=== PATIENT | male | born 1955 | race Caucasian/White ===

== ENCOUNTER 2020-10-25 01:02 | Observation (INO) | payer OTHER ==
[~2020-10-25] VITALS: Ht 175.3 cm; Wt 102.9 kg
[2020-10-25 01:26] LABS: BASOPHILS ABSOLUTE AUTO 0.04 K/mm3 (0.00-0.23); BASOPHILS PERCENT AUTO 1 % (0-2); EOSINOPHILS ABSOLUTE AUTO 0.13 K/mm3 (0.00-0.68); EOSINOPHILS PERCENT AUTO 2 % (0-6); Hematocrit 34.7 % (37.0-53.0); Hemoglobin 10.9 g/dL (13.5-17.5); IMMATURE GRAN ABSOLUTE AUTO 0.01 K/mm3 (0.00-0.10); IMMATURE GRAN PERCENT AUTO 0 % (0-1); LYMPHOCYTES ABSOLUTE AUTO 1.42 K/mm3 (0.84-5.20); LYMPHOCYTES PERCENT AUTO 19 % (21-46); MONOCYTES ABSOLUTE AUTO 0.58 K/mm3 (0.16-1.47); MONOCYTES PERCENT AUTO 8 % (4-13); Mean Corpuscular HGB 24.8 pg (26.0-34.0); Mean Corpuscular HGB Conc 31.4 g/dL (31.5-36.5); Mean Corpuscular Volume 79 fL (80-100); Mean Platelet Volume 10.6 fL (9.1-12.4); NEUTROPHILS ABSOLUTE AUTO 5.49 K/mm3 (1.96-9.15); NEUTROPHILS PERCENT AUTO 72 % (41-73); Platelet Count 193 K/mm3 (150-400); RDW Coefficient Variation 16.1 % (11.7-14.2); RDW Standard Deviation 46.4 fL (35.1-46.3); White Blood Cell Count 7.67 K/mm3 (4.00-11.30)
[2020-10-25] MEDS ORDERED: ALPR.5 PO (01:39)
[2020-10-25] MEDS ORDERED: PARO20 PO (01:39)
[2020-10-25 01:44] LABS: Acetaminophen, Random <2.0 ug/mL (10.0-30.0); Alanine Aminotransfer (ALT/SGP 29 U/L (12-78); Albumin, Blood 3.7 g/dL (3.4-5.0); Albumin/Globulin Ratio 1.2 (0.8-1.8); Alk Phos 89 U/L (50-136); Anion Gap 4 mmol/L (6-16); Aspartate Aminotrans (AST/SGOT 17 U/L (12-37); Bilirubin, Total 0.4 mg/dL (0.1-1.0); Blood Urea Nitrogen 20 mg/dL (8-24); Bun/Creatinine Ratio 20.5 (12.0-20.0); CO2, Blood 29 mmol/L (21-32); Calcium, Blood 8.3 mg/dL (8.5-10.1); Chloride, Blood 110 mmol/L (98-108); Creatinine, Blood 0.98 mg/dL (0.60-1.20); Ethanol (Alcohol), Blood, Med <3 mg/dL; Globulin, Blood 3.2 g/dL (2.2-4.0); Glomerular Filtration Rate >60 (60-); Glucose, Blood 128 mg/dL (70-99); Potassium, Blood 3.4 mmol/L (3.5-5.5); Salicylate <1.7 mg/dL (2.8-20.0); Sodium, Blood 143 mmol/L (136-145); Total Protein, Blood 6.9 g/dL (6.4-8.2)
[2020-10-25 01:55] LABS: Magnesium, Blood 2.4 mg/dL (1.6-2.4)
[2020-10-25 02:01] LABS: Source, Urine Clean Catch
[2020-10-25 02:33] LABS: Appearance, Urine Clear (Clear); Bilirubin, Urine Neg (Neg); Blood, Urine 2+ (Neg); Color, Urine Yellow (P-Yellow); Glucose Qualitative, Urine Neg (Neg); Ketones, Urine Neg (Neg); Leukocyte Esterase, Urine 3+ (Neg); Nitrite, Urine Pos (Neg); Protein, Urine 1+ (Neg); Specific Gravity, Urine 1.015 (1.003-1.022); Urobilinogen, Urine NORM (Normal); pH, Urine 6.5 (5.0-8.0)
[2020-10-25 02:39] LABS: Bacteria Many /hpf; Squamous Epithelial Cells Not Seen /hpf (Few); White Blood Cells, Urine 50-100 /hpf (0-5)
[2020-10-25 02:59] LABS: U Amphetamine Screen Not Detected; U Barbituate Screen Not Detected; U Benzodiazapine Screen DETECTED; U Buprenorphine Screen Not Detected; U Cannabinoids Screen Not Detected; U Cocaine Screen Not Detected; U Methadone Screen Not Detected; U Methamphetamine Screen Not Detected; U Opiates Screen Not Detected; U Oxycodone Screen Not Detected; U Phencyclidine Screen Not Detected; U Propoxyphene Screen Not Detected
--- NOTE | 2020-10-25 03:47 | NUR ---
POISON CONTROL: JENIFFER CERRATO, REVIEWED PT STATUS, AND ORDERS AND TX PLAN. PT WILL NEED ONLY 12* OBSERVATION TIME WITH PEAK BEING 0500. IF PT BECOMES SYMPTOMATIC WITH TACHYCARDIA, TREMORS, OR AGGITATION RECOMMEND TX W BENZO'S. NO FURTHER REPEAT LABS RECOMMENDED. CALL FOR FURTHER QUESTIONS OR CONCERNS.
--- NOTE | 2020-10-25 04:12 | NUR ---
ASSUMPTION OF CARE RECEIVED REPORT FROM JOIE BROWN, PATIENT ARRIVED TO ICU AT 0210 VIA GURNEY. 3 PERSON ASSIST TO BED. PATIENT AWAKE, ORIENTED. CONVERSING, OFTEN SLURRING WORDS AND FORGETFUL BUT ANSWERS QUESTIONS APPROPRIATELY. PATIENT DENIED SI AT THIS TIME, STATED HE FELT LIKE HE WAS READY JUST TO "GET IT OVER WITH IT" EARLIER TODAY BUT RIGHT NOW HE FELT THE BEST HE'S FELT IN A LONG TIME. WHEN ASKED WHAT HE TOOK, PATIENT REPLIED "I DRANK ALOT OF MARGARITAS". PATIENT BRADYCARDICA, SATS ABOVE 95% ON RA, PATENT BILAT PERIPHERAL IV'S. UROSTOMY WITH HOME APPLIANCE IN PLACE, INTACT AND DRAINING CLEAR, YELLOW URINE. NOTIFIED VLAD IN REMOTE MONITORING AND PATIENT WAS SET UP ON DIRECT CAMERA UPON ADMISSION, 1:1 CONSTANT OBSERVATION PLACED BY ZEUS, ICU STAFF. PATIENT COOPERATIVE AND ENGAGED IN CONVERSATION DURING ADMISSION QUESTIONAIRRE, KEPT REFERRING TO , KIDS AND GRANDKIDS WANTING TO GET BETTER FOR THEM. UPON FINISHING ADMISSION QUESTIONS PATIENT BEGAN DOSING OFF TO SLEEP. AT 0300 A MALE ARRIVED TO ED STATING HE WAS THE PATIENT'S , AWOKE PATIENT TO CLARIFY, PATIENT WAS ASKED IF THEY HAD A SPOUSE, PATIENT SAID YES A IN [place]. PATIENT WAS ASKED IF THERE WAS A MALE IN THIS AREA THAT WOULD VISIT, PATIENT STATED HIS SON GORDON. WHEN ASKED WHO JENNIFER MIGHT BE, PATIENT STATED HIS THEN CLARIFIED HE HAS A AND AN EX-. PATIENT GAVE RN PERMISSION TO SPEAK WITH JENNIFER. JENNIFER WAS UPDATED ON PATIENT'S STATUS, AND POSSIBLE PLAN TOMORROW. PATIENT'S MEDICATIONS SENT WITH JENNIFER. JENNIFER STATED LIFE HAS BEEN STRESSFUL, RECENTLY LOST A DAUGHTER, A GRANDAUGHTER HAS CANCER, AND THEY ARE IN TOWN SELLING FAMILY PROPERTY AND CLOSING AN ESTATE. JENNIFER FOUND PATIENT WITH NO CLOTHES ON, LAYING ON THEIR HOTEL ROOM WITH PILLS SCATTERED ON FLOOR AROUND HIM. JENNIFER SAID PATIENT DOES HAVE ANXIETY AND DEPRESSION AND WASN'T HANDLING THE RECENT STRESSORS, BUT NEVER SPOKE OF SUICIDE AND JENNIFER WAS VERY SURPRISED BY THIS INCIDENT. JENNIFER LEFT HIS CONTACT NUMBER AND WAS GIVEN THE ICU DIRECT PHONE NUMBER. CURRENTLY PATIENT IS REPOSITIONING SELF IN BED WHILE SLEEPING, VITALS REMAIN STABLE. 1:1 OBSERVATION REMAINS WITH DIRECT MONITORING BY CAMERA WELL.
--- NOTE | 2020-10-25 06:20 | NUR ---
SHIFT SUMMARY PATIENT ADMITTED PREVIOUSLY CHARTED. CONTINUES TO DENY SI NOW, THINKS HE IS DRUNK AND WAKES UP ASKING WHERE HE IS. REMAINS PLEASANT AND COOPERATIVE, SLEEPS VERY DEEPLY, IT TAKES BOTH PHYSICAL AND VERBAL STIMULI TO AROUSE PATIENT. ON ROOM AIR WITH 02 SATS ABOVE 95%, BRADYCARDIC 40-50'S, STABLE B/P. SCD'S PLACED TO BLE. IV FLUIDS INFUSING ORDERED WITH POTASSIUM REPLACEMENT INFUSING. CONTINUING TO MONITOR. WILL GIVE REPORT TO ONCOMING RN.
[2020-10-25 09:06] LABS: BASOPHILS ABSOLUTE AUTO 0.03 K/mm3 (0.00-0.23); BASOPHILS PERCENT AUTO 0 % (0-2); EOSINOPHILS ABSOLUTE AUTO 0.11 K/mm3 (0.00-0.68); EOSINOPHILS PERCENT AUTO 2 % (0-6); Hematocrit 35.1 % (37.0-53.0); Hemoglobin 10.9 g/dL (13.5-17.5); IMMATURE GRAN ABSOLUTE AUTO 0.02 K/mm3 (0.00-0.10); IMMATURE GRAN PERCENT AUTO 0 % (0-1); LYMPHOCYTES PERCENT AUTO 16 % (21-46); MONOCYTES ABSOLUTE AUTO 0.57 K/mm3 (0.16-1.47); MONOCYTES PERCENT AUTO 8 % (4-13); Mean Corpuscular HGB 24.6 pg (26.0-34.0); Mean Corpuscular HGB Conc 31.1 g/dL (31.5-36.5); Mean Corpuscular Volume 79 fL (80-100); Mean Platelet Volume 11.2 fL (9.1-12.4); NEUTROPHILS ABSOLUTE AUTO 5.59 K/mm3 (1.96-9.15); NEUTROPHILS PERCENT AUTO 74 % (41-73); Platelet Count 176 K/mm3 (150-400); Red Blood Cell Count 4.43 M/mm3 (4.30-5.90); White Blood Cell Count 7.52 K/mm3 (4.00-11.30)
[2020-10-25 09:24] LABS: Alanine Aminotransfer (ALT/SGP 27 U/L (12-78); Albumin, Blood 3.5 g/dL (3.4-5.0); Albumin/Globulin Ratio 1.1 (0.8-1.8); Alk Phos 83 U/L (50-136); Anion Gap 7 mmol/L (6-16); Aspartate Aminotrans (AST/SGOT 17 U/L (12-37); Bilirubin, Total 0.4 mg/dL (0.1-1.0); Blood Urea Nitrogen 16 mg/dL (8-24); Bun/Creatinine Ratio 20.3 (12.0-20.0); CO2, Blood 26 mmol/L (21-32); Calcium, Blood 8.3 mg/dL (8.5-10.1); Chloride, Blood 111 mmol/L (98-108); Creatinine, Blood 0.79 mg/dL (0.60-1.20); Globulin, Blood 3.1 g/dL (2.2-4.0); Glomerular Filtration Rate >60 (60-); Glucose, Blood 92 mg/dL (70-99); Magnesium, Blood 2.4 mg/dL (1.6-2.4); Potassium, Blood 4.5 mmol/L (3.5-5.5); Sodium, Blood 144 mmol/L (136-145); Total Protein, Blood 6.6 g/dL (6.4-8.2)
--- NOTE | 2020-10-25 11:55 | NUR ---
PT GRANTED VERBAL PERMISSION FOR CARE MANAGEMENT TO SPEAK TO BOTH "" AND "" PT THEN STS CURRENT SPOUSE IS "JENNIFER" AND STS THAT STAFF CAN SPEAK WITH JENNIFER. THIS RN SPOKE WITH JENNIFER THIS MORNING, ATTEMPTED TO PROVIDE UPDATES TO JENNIFER ABOUT PT STATUS BUT JENNIFER WISHED TO SPEAK ABOUT THE POSSIBLITY OF PT BEING D/C TODAY. PT WAKES TO VERBAL STIMULI, IS VERY PLEASANT AND HAPPY WHEN WOKEN. PT COMPLETED SI PLAN WITH RAJWINDER, PT THEN AMBULATED TO BATHROOM WITH SLOW GAIT TO SHOWER, LT SIDED DRIFT IN GAIT NOTED. PT IS ALERT, AWARE OF SURROUNDINGS BUT DOES NOT GIVE CONSISTANT ANSWERS TO QUESTIONS. PT VERY DROWSY RETURNS TO SLEEP QUICKLY AFTER BEING WOKEN
--- NOTE | 2020-10-25 11:55 | NUR ---
Suicide Safety Plan completed. [facility] , Lu[facility] divesting a property here. He reports no memory of how he got to hosptal. He appears to minimize the amount of Alpraolam he ingested-" I took 2-3 , then a lettle later took 2-3 more". He acknowledges he was "tired of bickering, and wanted it to stop". His report of times when he ingested the pills was inconsistent during the interview-one report was it was morning, then afternoon. mid interview he was surprised that he was in the ICU when informed. He reports his daughter in October last year, and now his 6 year old grandaudavinater is undergoing radiation therapy for brain cancer. He lies in [facility] with his of 18 years. He had seen a therapist for "[facility]" in Mar, May, and May, " I stopped due to insurance running out"--Receives Paxil and Alprazalam from PCP (Cooper?). He reports he receives 30 day script but it will last a year. His Paxil was increased to 30 mg by PCP at holidays--but was decreased back to 20 mg "it made me weird". Patient presents as 65 y/o male, well groomed, well spoken and admits to SI over past yearover losses-"sometimes think it would be easier to not be here". Has dx of bladder cancer, and ostomy--reports his cancer has improved. Pt denies current suicidal ideation and no intent to harm self in hospita. Denies previous attempts. Further evaluation by psychiatrist for cognitive orientation. RN reports patient's has called and requesting discharge soon,, and not inquiring re: status of patient medicl.Interventions--discussed allowing meds to be monitored by S.O. and or moveing meds to secure location. Crisis hotline noted on safety plan for [facility] in [place]. Jolene Hemphill M.Ed., [facility]
--- NOTE | 2020-10-25 15:04 | NUR ---
PT WORKED WITH PHYSICAL THERAPY AND OCCUPATIONAL THERAPY TODAY, THEY ALSO NOTED SLIGHT RT SIDED DRIFT. PERRL. PT AWAKENS TO VERBAL STIMULI WITH BUT DOES NOT STAY AWAKE VERY LONG. PT IS PLEASANT CALM AND COOPERATIVE WHEN AWAKE. MONITOR SHOWS BRADYCARDIA IN THE 40s T/O THE DAY WHICH IS UNCHANGED FROM NOC SHIFT. PT DENIES SI/HI STS FEELS SAFE AT HOME. S/O JENNIFER HAS BEEN UPDATED THAT PT HAS NOT BEEN EVALUATED BY PSYCH AT THIS TIME
--- NOTE | 2020-10-25 17:42 | NUR ---
Per admit trigger, I attempted to assess and professor of counseling pt today. Aquiles was unable to hold meaningful conversation. Binder Caser will continue to attempt visit.
--- NOTE | 2020-10-25 18:14 | NUR ---
REPORT CALLED TO MARY ON MEDICAL FLOOR, RN IS AWARE OF BRADYCARDIA. NEW ORDERS OBTAINED FOR REGULAR DIET AND BID GLUCOSE CHECKS. PT REMAINS DROWSY, SINUS LANCE AT 44. NADN. NO IV DRIPS INFUSING AT THIS TIME.
--- NOTE | 2020-10-25 18:30 | NUR ---
NO PT BELONGINGS WERE FOUND IN ROOM OR LOCKED CABINET
--- NOTE | 2020-10-25 18:40 | NUR ---
PT FROM PCU TRANSFERRED HERE IN MEDICAL FLOOR; ADMITTED FOR POLYSUBSTANCE OVERDOSE. PT STATED IT WAS UNINTENTIONAL AND HE TOOK A FEW EXTRA DOSE OF MEDICATION TO PUT HIM TO SLEEP. PT AOX4; HE WAS ON MD HOLD YESTERDAY. DC'D THE SUIDICE PRECAUTIONS. PT HAS A NAME TREVOR. PT USES [facility] 1P ASSIST. COMMUNITY HEALTH NURSING DIRECTOR STATED THAT PT WAS ON TELE AND RUNNING 40'S TO 50'S ASYMPTOMATIC. POISON CONTROL WAS ON BOARD FOR MANAGEMENT. PT HAS UROSTOMY DUE TO HX OF BLADDER CANCER AND DEPRESSION . PT IS PLEASANT AND CALM. PT HAS IMPAIRED GAIT; PT AND OT WORKING WITH HIM. BED ALARM IS ON AND CALL LIGHT WITHIN REACH
--- NOTE | 2020-10-25 22:00 | NUR ---
ASSUMED CARE. AOX3, STILL VERY FOGGY, WEAK, FEELING DRUGGED UP. CONTINUED TO REPEAT HIMSELF THAT HE IS NOT SUICIDAL, THAT HE WAS JUST TRYING TO SLEEP DUE TO HIGH LEVELS OF STRESS IN HIS LIFE RIGHT NOW. REPORTS CONSTANT HIGH ANXIETY AND DEPRESSION RELATED TO SEVERAL RECENT DEATHS AND FAMILY ISSUES. DID SEE A SOMEONE FOR SOME COUNCELING BUT ONLY FOR A FEW MONTHS. STILL HAVEING LARGE PANIC ATTACKS. DISCUSSED WHAT XANAX DOES TO THE BODY AND WHY IT IS IN THE DOSE IT IS. DISCUSSED POSSIBLY PLACING HIM ON SOME BUSPAR TO HELP CONTROL THE ANXIETY HE HAS ALL DAY LONG EVERY DAY. NOT SURE IF HE WILL REMEMBER THE CONVERSATION HE WAS DOSING OFF SOME. HR FROM TELE CONTINUE TO CALL DUE TO IT DROPPING IN THE 40'S LOWEST IT HAS GONE IS 39. DR. CABRERA IS AWARE AND WANTED US TO MONITOR, IF HE CONTINUES TO DROP IN THE 30'S THEN CALL. INFORMED TELE. PATIENTS CALLED AND ASKED ABOUT DISCHARGE, INFORMED THAT THERE IS NO SEEN PLAN AT THIS TIME. WILL CONTINUE TO MONITOR. CALL LIGHT IN REACH. ATTACKS
--- NOTE | 2020-10-26 06:00 | NUR ---
SHIFT SUMMARY: AOX3, FUSSY AT TIMES BUT DID CLEAR UP THIS AM. REPORTED HE TOOK THE XANAX TO GO TO SLEEP BUT DID REPORT HE WAS UNDER A LOT OF STRESS. EXPLAINING THAT HE RECENTLY LOST HIS DAUGHTER, AND OTHER LIFE STRESSORS. REPORTS HIGH ANXIETY EVERY DAY AND ALL DAY LONG. DISCUSSED STARTING BUSPAR TO HELP, SEE PREVIOUS NOTE. EDUCATED ON MEDICATION. HE SAID HE UNDERSTANDS NOW. ABLE TO WALK BETTER THIS AM, WEAKNESS RESOLVING. CHANGE OF URINARY BAG DUE TO LEAKAGE AND SEAL BUSTING. HE WAS ABLE TO DO IT HIMSELF. TELE HAS BEEN REPORTING PATIENT BEING LANCE ALL NIGHT. DROPPED DOWN TO 39 BUT STAYED IN THE LOW 40'S. MD WAS NOTIFED, BP NORMAL, SAID TO WATCH IF DROPS BELOW 40 AND SUSTAINS TO CALL. HE DROPPED TO 38 AND HELD FOR MORE THEN [address] FLYNN, BP STILL NORMAL. STATES TO MONITOR. WILL REPORT TO DAYSHIFT. CALL LIGHT IN REACH.
--- NOTE | 2020-10-26 16:43 | NUR ---
PATIENT DISCHARGE: PATIENT DISCHARGED TO HOME THIS SHIFT. MEDICATION RECONCILIATION COMPLETED; NO NEW MEDS TO REPORT. DISCHARGE EDUCATION COMPLETED WITH PATIENT. PATIENT TRANSPORTED TO EXIT BY [facility] STAFF WITH WHEELCHAIR AT 1307. PATIENT DEPARTED [facility] VIA PRIVATE AUTO.
== END 2020-10-26 12:54 | disposition home or self-care (01) ==
LOC: ER 01:02 → MEDS 01:03 → ICUW 01:03 → ICUE 01:08 → ER 01:08 → ICUE 01:08 → ICUW 01:08 → ICUE 02:20 → MEDS 18:40
PROVIDERS: Emergency Medicine; Student in an Organized Health Care Education/Training Program; ADMIT Family Medicine
DX: T42.4X2A Poisoning by benzodiazepines, intentional self-harm, initial encounter (principal); T43.222A Poisoning by selective serotonin reuptake inhibitors, intentional self-harm, initial encounter; R40.0 Somnolence; R26.9 Unspecified abnormalities of gait and mobility; R00.1 Bradycardia, unspecified; F33.9 Major depressive disorder, recurrent, unspecified; F41.9 Anxiety disorder, unspecified; E87.6 Hypokalemia; R82.81 Pyuria; E11.9 Type 2 diabetes mellitus without complications; Z74.09 Other reduced mobility; Z85.51 Personal history of malignant neoplasm of bladder; Z96.651 Presence of right artificial knee joint
CPT/HCPCS: 36415; 80053; 81001; 82947; 83735; 85025; 87077; 87086; 87186; 93005; 93010; 96360; 96372; 97110; 97163; 97166; 97530; 97535; 99285-25; G0378; G0480; J1650; J3480; J7030